=== PATIENT | female | born 1955 ===

== ENCOUNTER 2018-06-09 19:19 | Outpatient (CLI) | payer OTHER | END 2018-06-09 22:00 | disposition home or self-care (01) | LOC: RAD 19:19 | DX: S52.571A Other intraarticular fracture of lower end of right radius, initial encounter for closed fracture (principal) ==

== ENCOUNTER 2018-06-14 09:47 | Outpatient (CLI) | payer OTHER | END 2018-06-14 09:56 | disposition home or self-care (01) | LOC: NUCLEAR 09:47 | DX: M85.89 Other specified disorders of bone density and structure, multiple sites (principal) ==

== ENCOUNTER 2018-09-25 10:25 | Outpatient (CLI) | payer OTHER | END 2018-09-25 11:30 | disposition home or self-care (01) | LOC: LAB 10:25 | DX: G62.0 Drug-induced polyneuropathy (principal); E56.0 Deficiency of vitamin E; E53.8 Deficiency of other specified B group vitamins; E03.3 Postinfectious hypothyroidism; A64 Unspecified sexually transmitted disease; Z11.4 Encounter for screening for human immunodeficiency virus [HIV]; I10 Essential (primary) hypertension; E78.2 Mixed hyperlipidemia; E04.0 Nontoxic diffuse goiter; N39.0 Urinary tract infection, site not specified; E61.2 Magnesium deficiency; E20.0 Idiopathic hypoparathyroidism; E11.9 Type 2 diabetes mellitus without complications; D53.8 Other specified nutritional anemias; D55.8 Other anemias due to enzyme disorders ==

== ENCOUNTER → 2018-10-08 | Outpatient (CLI) | payer OTHER | END | disposition home or self-care (01) | LOC: LAB 09:46 | DX: C75.3 Malignant neoplasm of pineal gland (principal); Z51.81 Encounter for therapeutic drug level monitoring ==